=== PATIENT | male | born 1955 | race American Indian/Alaskan Native ===

== ENCOUNTER 2020-06-07 07:48 | Day surgery (SDC) | payer MEDICARE ==
[~2020-06-07 07:48] MED LIST: LACTATED RINGERS 1,000 ML IV SCH; MIDAZOLAM 2 MG/2 ML INJ IV NR
--- NOTE | 2020-06-07 08:44 | Anesthesia Consultation ---
Anesthesia Consult and Med Hx Date of service: 06/07/20 - Airway Anesthetic Teeth Evaluation: Poor ROM Head & Neck: Adequate Mental/Hyoid Distance: Adequate Mallampati Class: Class III Intubation Access Assessment: Possibly Difficult - Pulmonary Exam CTA: Yes - Cardiac Exam Cardiac Exam: RRR - Pre-Operative Health Status ASA Pre-Surgery Classification: ASA2 Proposed Anesthetic Plan: General - Pulmonary Hx Smoking: No Hx Respiratory Symptoms: No Hx Sleep Apnea: No (JANELL PRE SCREEN HIGH RISK) - Cardiovascular System Hx Hypertension: Yes (took antihypertensives this morning) Hx Heart Attack/AMI: No Hx Percutaneous Transluminal Coronary Angioplasty (PTCA): No Hx Cardia Arrhythmia: No - Central Nervous System CVA: No - Endocrine Hx Renal Disease: No Hx Liver Disease: No Hx Non-Insulin Dependent Diabetes: Yes Hx Thyroid Disease: No - Other Systems Hx Alcohol Use: Yes (OCC. BEER) Hx Obesity: Yes (BMI 33) - Additional Comments Anesthesia Medical History Comments: No hx anesthetic complications.
--- NOTE | 2020-06-07 08:45 | Anesthesia Day of Surgery ---
Anesthesia Day of Surgery - Day of Surgery Patient Examined: Yes Patient H&P Reviewed: Yes Patient is NPO: Yes
[2020-06-07] MEDS ORDERED: LIDOCAINE MPF (2%) 20 MG/1 ML VIAL 5 ML ONE (09:41)
[2020-06-07] MEDS ORDERED: HYDROmorphone 1 MG/1 ML INJ ONE (09:41)
[2020-06-07] MEDS ORDERED: propofoL 200 MG/20 ML VIAL IV ONE (09:41)
[2020-06-07] MEDS ORDERED: GENTAMICIN/NS 80 MG/100 ML 100 ML IV SCH (09:52)
[2020-06-07] MEDS ORDERED: ONDANSETRON 4 MG/2 ML INJ ONE (10:37)
[2020-06-07] MEDS ORDERED: IOHEXOL 300 MG/ML 50ML IV ONE (10:41)
[2020-06-07] MEDS ORDERED: WATER FOR IRRIG STERILE 1,500 ML BOTTLE IR ONE (10:42)
--- NOTE | 2020-06-07 10:47 | Short Stay Summary ---
Short Stay Documentation Date of service: 06/07/20 - History H&P: obtained from office - Allergies and Medications Current Medications: Allergies No Known Allergies Allergy (Verified 05/29/20 16:21) Home Medications Medication Instructions Recorded Confirmed Last Taken Type Aspirin 81 mg PO DAILY 05/29/20 06/07/20 3 Weeks Ago History ~05/17/20 B Cmplx 4/Vit D3/C/Folic/Zinc 1 tab PO DAILY 05/29/20 05/29/20 06/06/20 History Losartan-Hctz 100-25 mg Tab 50 mg PO DAILY 05/29/20 05/29/20 06/06/20 History Pantoprazole [Protonix] 40 mg PO QDAY 05/29/20 05/29/20 06/06/20 History Simvastatin 20 mg PO DAILY 05/29/20 05/29/20 06/06/20 History amLODIPine 50 mg PO DAILY 05/29/20 06/07/20 06/07/20 08:30 History glipiZIDE 10 mg PO DAILY 05/29/20 05/29/20 06/06/20 History Active Medications Cefazolin Sodium (Cefazolin/Sterile Water 2 Gm/20 Ml Syringe) 2 gm IV PREOP NR Stop: 06/07/20 20:00 Fentanyl (Fentanyl 100 Mcg/2 Ml Inj) 50 mcg IV Q5MIN PRN PRN Reason: Pain , Severe (7-10) Stop: 06/07/20 23:00 Lactated Ringer's (Lactated Ringers) 1,000 mls @ 100 mls/hr IV DIRECT TERESA Stop: 06/07/20 23:59 Last Admin: 06/07/20 09:43 Dose: 100 mls/hr Documented by: Gentamicin Sulfate/Sodium Chloride (Gentamicin/Ns 80 Mg/100 Ml) 100 mls @ 200 mls/hr IV PREOP TERESA Stop: 06/07/20 18:00 Midazolam HCl (Midazolam 2 Mg/2 Ml Inj) 2 mg IV PREOP NR Stop: 06/07/20 21:00 Last Admin: 06/07/20 09:50 Dose: 2 mg Documented by: - Brief post op/procedure progress note Date of procedure: 06/07/20 Pre-op diagnosis: elevated psa (6)/ BPH Post-op diagnosis: same Procedure: cysto, rpg, pus 35cc, bx 12 Anesthesia: GETA Surgeon: JOSÉ LUIS KEYS Estimated blood loss: minimal Pathology: list (12 cores) Specimen disposition: to lab Condition: stable - Hospital course Hospital course: bactrim & ultram on chart - Disposition Condition at discharge: Stable Disposition: DC-01 TO HOME OR SELFCARE Short Stay Discharge Plan Follow up with: PRIMARY CARE, [Primary Care Provider] - 7 Days
[2020-06-07] MEDS ORDERED: ceFAZolin/STERILE WATER 2 GM/20 ML SYRINGE IV NR (11:00)
--- NOTE | 2020-06-07 11:03 | Operative Report ---
PREOPERATIVE DIAGNOSES: Elevated PSA at 6.2, benign prostatic hypertrophy. POSTOPERATIVE DIAGNOSES: Elevated PSA at 6.2, benign prostatic hypertrophy. PROCEDURE PERFORMED: Cystoscopy, bilateral retrograde pyelograms, transrectal ultrasound biopsy of prostate (35-gram gland). SURGEON: Vel Darnell MD ANESTHESIA: General. ESTIMATED BLOOD LOSS: Minimal. FLUIDS: Crystalloid. COMPLICATIONS: No complications. INDICATIONS: This patient is a 64-year-old gentleman seen by Dr. Goss in the office for an elevated PSA. He was unable to tolerate a prostate biopsy under local anesthetic and presents now for biopsy under general anesthesia with mild voiding symptoms. Discussed options, risks, benefits, and complications were explained. The patient agreed to proceed with surgical intervention. DESCRIPTION OF PROCEDURE: The patient was taken to the operative suite, placed in a supine position. After adequate general anesthesia, placed in a dorsal lithotomy position, prepped and draped in a sterile fashion. Pancystourethroscopy was performed with a 22-B[place] Storz cystoscope, no urethral abnormalities. Prostate, the patient does have some mild trilobar obstruction. Bladder, no tumors or stones were noted. Both ureteral orifices in normal position. Bilateral retrograde pyelograms were obtained with an 8-[place] Nedra catheter and 8 mL of contrast. No filling defects or obstruction. Also of note, the patient has orthopedic hardware in his right hip. Next, using a transrectal ultrasound probe, prostate was ultrasounded, sagittal and transverse images were obtained. No suspicious lesions could be appreciated. Volume was 35 grams. A 12-core biopsy was then performed, 4 at the base, 4 at the mid and 4 at the apex, left and right side. The patient tolerated the procedure well. Rectal exam, no suspicious lesions. He was taken to recovery room in stable condition. He will go home on Bactrim and Ultram and follow up with Dr. Goss. JOB# [id number] [facility]
[2020-06-07] MEDS: fentaNYL 100 MCG/2 ML INJ IV PRN ×2 (11:05→11:15)
--- NOTE | 2020-06-07 11:12 | Ultrasound Report ---
ULTRASOUND TRANSRECTAL HISTORY: Elevated PSA, guidance for prostate biopsy. TECHNIQUE: Transrectal grayscale ultrasound imaging. FINDINGS: Transrectal ultrasound guidance was provided by radiology during prostate biopsy by Dr. Cameron dent of urology. Prostate volume measures 24.6 cc. Please correlate with the procedural report as need ed. IMPRESSION: Successful prostate biopsy under transrectal ultrasound guidance. Signer Name: Mark Anthony Ernandez Jr, MD Signed: 06/07/2020 11:08 AM Workstation Name: [id number]
--- NOTE | 2020-06-07 12:00 | Fluoroscopy Report ---
FLUOROSCOPY RETROGRADE UROGRAPHY HISTORY: FINDINGS: Fluoroscopy was provided by radiology during retrograde urography by the urologist. There i s normal filling of both renal collecting systems. No filling defect or abnormal dilatation is identi fied. IMPRESSION: Unremarkable bilateral retrograde pyelograms Fluoroscopy time: 5 seconds Fluoroscopic images: 4 Signer Name: Mark Anthony Ernandez Jr, MD Signed: 06/07/2020 11:56 AM Workstation Name: [id number]
[2020-06-07 12:02] VITALS: BP 127/83
--- NOTE | 2020-06-07 13:28 | Post Anesthesia Evaluation ---
- Post Anesthesia Evaluation Patient Participated: Yes Airway Patent: Yes Stable Respiratory Function: Yes Nausea/Vomiting: No Temp > 96.8F: Yes Pain Manageable: Yes Adequeate Hydration: Yes Anesthesia Complications: No
== END 2020-06-07 12:50 | disposition home or self-care (01) ==
LOC: OR 07:48
PROVIDERS: ATTEND Urology
DX: R97.20 Elevated prostate specific antigen [PSA] (principal); N40.0 Benign prostatic hyperplasia without lower urinary tract symptoms; E78.00 Pure hypercholesterolemia, unspecified; E11.9 Type 2 diabetes mellitus without complications; I10 Essential (primary) hypertension; K21.9 Gastro-esophageal reflux disease without esophagitis; E66.9 Obesity, unspecified; Z72.89 Other problems related to lifestyle; Z79.899 Other long term (current) drug therapy; Z79.82 Long term (current) use of aspirin; Z90.49 Acquired absence of other specified parts of digestive tract; Z98.890 Other specified postprocedural states; Z68.33 Body mass index [BMI] 33.0-33.9, adult
CPT/HCPCS: 36415; 52005; 55700; 74420; 76872; 82947; 82962; 84132; 88305; J0690; J1170; J1580; J2250; J2405; J2704; J3010; J7120; Q9967